=== PATIENT | male | born 1970 | race Caucasian/White ===

== ENCOUNTER 2024-10-01 10:11 | Emergency (ER) | payer MEDICAID, SELFPAY ==
[2024-10-01 10:10] VITALS: BP 131/72; PULSE 90; RESP 20; TEMP 37; O2SAT 97; BMI 24.2
--- NOTE | 2024-10-01 10:14 | XR_ITS ---
FINAL REPORT CLINICAL HISTORY: pain/swelling, dog bite FINDINGS: AP, lateral and oblique views of the right hand were obtained. There is no prior exam for comparison. There is no acute fracture or dislocation. The joint spaces are preserved. There is prominent dorsal soft tissue edema with subcutaneous air. No radiopaque foreign body identified. IMPRESSION: Prominent soft tissue edema with subcutaneous air. No acute osseous abnormality of the right hand. Reviewed, Interpreted and Dictated by Georgette Kearney MD Transcribed by Stephanie Petersen Authenticated and [facility]
--- NOTE | 2024-10-01 10:17 | ED_ITS ---
Discharge Plan Disposition Patient Disposition: Xfer Short-Term Hosp Referrals Follow up/Referrals: Provider,Referral, [Primary Care Provider] - See instructions Clinical Impressions Clinical Impression: Dog bite of right hand, Open fracture of finger of right hand Instructions Patient Instructions: Animal Bites Print Language Print Language: Macedonian Discharge ED Provider: Merle Calderon General Adult HPI General Chief complaint: Animal Bite Stated complaint: dog bite Time Seen by Provider: 10/01/24 10:14 History of Present Illness HPI narrative: This patient is a 54-year-old male who is right-handed, denies significant past medical history, presenting to the emergency department for evaluation with concern for dog bite to the right hand that reportedly occurred yesterday. Patient arrives by EMS, who reported that he did not want to come. 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 The puppy bit him on the ulnar aspect of the right hand and right 4th and 5th digits yesterday. He is not sure if the puppy is up-to-date on vaccinations, but states that he knows the puppy does not have rabies. Patient states that he does not want any needle sticks or blood work done, he just wants to leave because he has to get to work. He does report that he has been drinking alcohol and has history of chronic alcohol abuse. He is unsure when his last tetanus shot was. He denies any other concerns or complaints Related Data Allergies Allergy/AdvReac Type Severity Reaction Status Date / Time No Known Allergies Allergy Verified 10/01/24 10:39 [facility] Disclaimer: The information contained in this section may have been updated after the patient was seen, as this information can be updated by other users. Social History Smoking Status: Current every day smoker alcohol intake: current current occupational status: employed Travel in the last 8 weeks?: None ROS Obtained: Yes All systems reviewed & no additional complaints except as documented Physical Exam General General appearance: alert and in no apparent distress Head Head exam: atraumatic and normocephalic Eye Eye exam: Present normal appearance, PERRL and EOMI ENT ENT exam: Present normal exam, normal oropharynx, mucous membranes moist and normal external ear exam Neck Neck exam: Present normal inspection, full ROM and trachea midline; Absent tenderness Chest Chest inspection: Present normal inspection and symmetric chest wall rise; Absent tenderness Respiratory Respiratory exam: Present normal lung sounds bilaterally; Absent respiratory distress, wheezes, stridor or accessory muscle use Cardiovascular Cardiovascular exam: Present regular rate and normal rhythm Abdominal Exam Abdominal exam: Present soft; Absent distention, tenderness or guarding Extremities Exam Extremities exam: Present full ROM, tenderness, normal capillary refill and edema Expanded Upper Extremity Exam Right: Hand L/R back image: 2 1. Multiple puncture wounds and small lacerations, mostly at the ulnar aspect of the right hand especially at the MCP joint of the fourth fifth digits. Comment: Fusiform swelling, erythema, and warmth of the right hand and digits that is not extend up the forearm. No pus draining from the wounds, but he does have serosanguineous drainage. Neurovascular intact distally in his fingers. Range of motion slightly limited secondary to swelling, but no obvious true deficits Back Exam Back exam: Present normal inspection and full ROM; Absent tenderness Neurological Exam Neurological exam: Present alert, oriented X3, CN II-XII intact and normal gait; Absent motor sensory deficit Psychiatric Psychiatric exam: Present anxious Skin Skin exam: Present warm and dry Medical Decision Making Medical Records Medical records reviewed: Yes I reviewed the patient's medical records. Screening: Per USPSTF and CDC recommendations, given the prevalence of disease in our region, it is our hospital?s policy to screen for HIV and viral Hepatitis for all patients aged 18 and over and those with ongoing risk factors. Sanket Inquiry Pt receiving controlled substance: No Vital Signs: 10/01/24 10:10 Temperature 98.6 F Temperature Source Oral Pulse Rate [Right] 90 Respiratory Rate 20 Blood Pressure [Right Arm] 131/72 Blood Pressure Mean [Right Arm] 91 Blood Pressure Source [Right Arm] Automatic Cuff 02 Sat by Pulse Oximetry 97 Oxygen Delivery Method Room Air Lab Data Lab results reviewed: Yes I reviewed the patient's lab results. Lab Results 10/01/24 10:27: WBC 12.3 H, RBC 4.91, Hgb 15.2, Hct 46.0, MCV 93.7, MCH 31.0, MCHC 33.0, RDW 15.3, Plt Count 183, MPV 10.0, Neut % (Auto) 74.9, Lymph % (Auto) 15.6, [place] % (Auto) 8.0, Eos % (Auto) 0.6, Baso % (Auto) 0.2, Neut # (Auto) 9.2 H, Lymph # (Auto) 1.9, [place] # (Auto) 1.0, Eos # (Auto) 0.1, Baso # (Auto) 0.0, ESR 1, Sodium 143, Potassium 3.8, Chloride 106, Carbon Dioxide 27, Anion Gap 13.8, BUN 10, Creatinine 0.80, Estimated Creat Clear 104, Estimated GFR 102, Est GFR ( Amer) 123, Glucose 83, Calcium 9.0, Total Bilirubin 0.4, AST 32, ALT 25, Alkaline Phosphatase 117, C-Reactive Protein 24.0 H, Total Protein 7.7, Albumin 5.0, Globulin 2.7, Albumin/Globulin Ratio 1.9 H, HCV Ab PIETRO w/Rflx PCR Qn Negative, HIV Ag/Ab Combo Qual Negative 10/01/24 10:27 10/01/24 10:27 Orders (Tests/Meds): ED MEDICATIONS Discontinued Medications Generic Name Dose Route Start Last Admin Trade Name Freq PRN Reason Stop Dose Admin Bacitracin 1 gm 10/01/24 11:42 10/01/24 11:46 Bacitracin Zinc Oint 30gm Tube TP 10/01/24 11:43 1 gm ONCE ONE Administration Ampicillin Sodium/Sulbactam 100 mls @ 200 mls/hr 10/01/24 10:14 10/01/24 10:41 Sodium 3 gm/ Sodium Chloride IV 10/01/24 10:15 200 mls/hr ONCE ONE Administration Tetanus/Reduced Diphtheria/Acell Pertussis 0.5 ml 10/01/24 10:14 10/01/24 11:40 Tet/Diphth/Pert-Adult 0.5ml Syringe IM 10/01/24 10:15 Not Given .ONCE ONE ORDERS Category Date Time Status Hand XR right minimum 3 views [XR hand RT min 3V] Stat Exams 10/01/24 10:14 Completed CBC w/Auto Diff [Complete Blood Count Auto Diff] Stat Lab 10/01/24 10:27 Completed CMP [Comprehensive Metabolic Panel] Stat Lab 10/01/24 10:27 Completed CRP [C-Reactive Protein] Stat Lab 10/01/24 10:27 Completed ESR [Erythrocyte Sedimentation Rate] Stat Lab 10/01/24 10:27 Completed HIV Combo Stat Lab 10/01/24 10:27 Completed Hepatitis C Ab Qual. W/ RFX Stat Lab 10/01/24 10:27 Completed Medical Decision Narrative: In summary, this patient is a 54-year-old male presenting to the Emergency Department for evaluation of dog bite to the right hand that reportedly happened yesterday. Differential diagnoses considered include but are not limited to rabies infection, cellulitis, abscess, tendon injury, open fracture, laceration, retained foreign body. Ruling out the most morbid conditions drove assessment. It should be noted patient's history includes alcohol abuse which is not at goal therapy. This complicates all aspects of care by increasing patient's risk for morbidity. History is provided by both the patient and EMS. Patient has significant soft tissue swelling of the right hand with redness, warmth, and I am concerned that this possibly happened prior to yesterday given the degree of swelling and cellulitic change. No pus draining from the wounds. He does not have any focal neurologic deficits and has intact cap refill. He has limited range of motion secondary to the swelling of his hand, but he does not have any obvious deficit. He has multiple open wounds and lacerations. Patient did not want to come here and is refusing needlesticks, however I did discuss with him the risk of rabies infection, tetanus infection, worsening cellulitis of his hand including loss of life and limb. After this, he was agreeable to IV for IV antibiotics and labs and he also was agreeable to tetanus booster, but he states that he knows the dog does not have rabies even though he is not sure about vaccination status and is not agreeable to any sort of rabies injections. Again, I did thoroughly explained risk of not treating this appropriately, including loss of limb and life. He expressed understanding and agreement but expresses a grave fear of needles. Workup included CBC, CMP, ESR, CRP, x-rays of the right hand. He was given tetanus booster as well as IV Unasyn. Hand wounds were extensively irrigated with sterile saline and Betadine. I independently interpreted x-ray prior to the radiologist read and noted fractures through the base of the fifth proximal phalanx, no foreign body. Please see their read for final interpretation initial radiology read did not demonstrate. Concern for fracture, so I had an indirect discussion with Dr. Kearney who addended the read. labs were obtained that demonstrated leukocytosis of 12.3 with elevated inflammatory markers including a CRP of 24. Chemistry is reassuring and nonactionable otherwise. On reassessment, patient is sitting upright in no acute distress. Hand was copiously irrigated, and wounds were dressed with bacitracin and Vaseline gauze. He has received IV Unasyn. Given the fracture to the base of the fifth proximal phalanx, he was placed in an ulnar gutter splint. He was not very cooperative with splint placement, but he did remain neurovascular intact afterwards. He refused tetanus shot adamantly despite explaining risk versus benefit, also refuses rabies evaluation and refuses to disclose other information about the dog. We again talked about risk of loss of limb/life if he has worsening of infection or condition. Given open fracture, I called and initiated discussion with [facility] Dr. Amanda with orthopedics hand who recommended transfer to their facility for higher level of care at . Dr. Amanda and Dr. England accepted the patient to [facility] emergency department. Patient states that he is not willing to go, and I talked him extensively about the reasons that he should, as already previously discussed. At that time, patient then eloped outside to go into smoke. We did convince him to come back inside. Now he is agreeable to transfer to . EMS transport was arranged and he was transferred in stable condition. Critical Care Critical Care Time Critical Care Time: Yes Attestation: On 10/01/24, the high probability of a clinically significant, sudden or life threatening deterioration of the following system(s) required my full and direct attention, intervention and personal management. The time I documented below is in addition to time spent performing reported procedures but includes the following listed in this critical care notation. Total Time Total Critical Care Time: 35
[2024-10-01 10:33] LABS: Basophils % 0.2 % (0.1-2.0); Eosinophils # 0.1 Kmm3 (0.0-0.4); Eosinophils % 0.6 % (0.1-12.0); Hemoglobin 15.2 g/dL (14.1-18.0); Immature Granulocytes # 0.08 10^3uL; Immature Granulocytes % 0.7 %; Lymphocytes # 1.9 K/mm3 (0.7-4.5); Lymphocytes % 15.6 % (10-50); Mean Corpuscular Volume 93.7 fl (80-94); Neutrophils # 9.2 K/mm3 (1.8-7.8); Neutrophils % 74.9 % (37.0-80.0); Nucleated Red Blood Cells # 0 10^3/uL; Nucleated Red Blood Cells % 0 %; Platelet Count 183 K/mm3 (142-424); Red Blood Count 4.91 M/mm3 (4.60-6.20); Red Cell Distribution Width 15.3 % (11.5-17.5); Red Cell Distribution Width-SD 50.5 fL; White Blood Count 12.3 K/mm3 (4.8-10.8)
[2024-10-01] MEDS: AMPICILLIN SODIUM/SULBACTAM 3 GM in 0.9 % SODIUM CHLORIDE 100 ML IV (10:41)
[2024-10-01 10:49] LABS: Chloride 106 mmol/L (98-107)
[2024-10-01 10:50] LABS: Potassium 3.8 mmoL/L (3.5-5.1); Sodium 143 mmol/L (136-145)
[2024-10-01 10:52] LABS: Alanine Aminotransferase 25 U/L (12-78); Anion Gap 13.8 mEq/L (5-15); Aspartate Amino Transferase 32 U/L (17-59); Blood Urea Nitrogen 10 mg/dl (9-20); Carbon Dioxide 27 mmol/L (22.0-30.0); Creatinine Clearance Estimated 104 mL/min (50-200); Estimated Glomerular Filt Rate 102 ml/min (>60); GFR (African American) 123 ML/MIN (>60)
[2024-10-01 10:53] LABS: Albumin/Globulin Ratio 1.9 (1.1-1.8); Alkaline Phosphatase 117 U/L (38-126); Bilirubin,Total 0.4 mg/dl (0.2-1.3); Globulin 2.7 g/dL (1.3-3.2); Glucose 83 mg/dl (74-100); Total Protein,Serum 7.7 g/dl (6.3-8.2)
[2024-10-01 11:16] LABS: Erythrocyte Sedimentation Rate 1 mm/hr (0-20)
--- NOTE | 2024-10-01 11:35 | PC.NURSE ---
Called [facility] per Dr Calderon to consult with hand about this pt with dog bite. Images were powershared and [facility] would call us back
[2024-10-01] MEDS: BACITRACIN ZINC OINT 30GM TUBE TP (11:46)
[2024-10-01 12:04] LABS: HIV Combo NEGATIVE (Negative)
--- NOTE | 2024-10-01 12:08 | PC.NURSE ---
Called [facility] back to follow up since it had been an hour. Hand team had been paged and we are just awaiting a callback
--- NOTE | 2024-10-01 12:11 | PC.NURSE ---
called back and is speaking with Dr Calderon now
[2024-10-01 12:13] LABS: Hepatitis C Ab Qual. W/ RFX NEGATIVE (Negative)
--- NOTE | 2024-10-01 12:23 | PC.NURSE ---
Dr Calderon s/w pt regarding new findings on xray of open fracture and the need for transfer to [facility]. Pt is asking to go outside to make a phone call . We let him know he can not leave the ER out to EMS bay and that if he chooses to leave now it will be AMA. He was offered a phone to make a call within the ER and questions offered. Dr Calderon is needing to place Ulnar/Gutter splint to R arm. He is agreeable to having splint placed and will think on it about the transfer.
--- NOTE | 2024-10-01 13:25 | PC.NURSE ---
Called EMS to advise them of this transfer
--- NOTE | 2024-10-01 13:26 | PC.NURSE ---
Report called to Tomas VIEYRA
[2024-10-01] MEDS: ONDANSETRON 4MG ODT 4 MG SL (13:33)
[2024-10-01] MEDS: ACETAMINOPHEN 500MG TAB 1000 MG PO (13:33)
[2024-10-01] MEDS: OXYCODONE 5MG IMMEDIATE RELEASE TABLET 5 MG PO (13:34)
[2024-10-01 13:39] VITALS: BP 120/71; PULSE 64; RESP 18; TEMP 36.7; O2SAT 99
== END 2024-10-01 14:06 | disposition short-term general hospital (02) ==
PROVIDERS: Emergency Provider Emergency Medicine
DX: S62.646B Nondisplaced fracture of proximal phalanx of right little finger, initial encounter for open fracture (principal); F10.10 Alcohol abuse, uncomplicated; F17.210 Nicotine dependence, cigarettes, uncomplicated; W54.0XXA Bitten by dog, initial encounter
CPT/HCPCS: 29125; 73130; 80053; 85025; 85651; 86140; 86803; 87389; 96374; 99285; J0295; Q0162

== ENCOUNTER 2024-10-16 10:25 | Emergency (ER) | payer MEDICAID, SELFPAY ==
[2024-10-16 10:27] VITALS: BP 134/75; PULSE 76; RESP 16; TEMP 36.6; O2SAT 97; BMI 21.9
[2024-10-16] MEDS: IBUPROFEN 400 MG TABLET 800 MG PO (10:37)
[2024-10-16] MEDS: ACETAMINOPHEN 500MG TAB 1000 MG PO (10:38)
[2024-10-16 11:03] VITALS: BP 0/0; PULSE 0; RESP 0; TEMP -17.7; TEMP 0; O2SAT 0
--- NOTE | 2024-10-16 11:03 | PC.NURSE ---
parul cameron come to nurses station and stated that pt was in the lobby waiting to speak to his sister. parul cameron told pt that she was there to get him for an xray. pt did not want xray and opted to leave facility.
--- NOTE | 2024-10-16 11:05 | ED_ITS ---
Discharge Plan Disposition Patient Disposition: Eloped Condition: Undetermined Chief Complaint: PAIN Prescriptions Prescriptions: No Action No Known Home Medications Referrals Follow up/Referrals: Provider,Referral, [Primary Care Provider] - See instructions Clinical Impressions Clinical Impression: Fall, Acute pain of right hip Dog bite of right hand Qualifiers: Encounter type: subsequent encounter Qualified Code(s): S61.451D - Open bite of right hand, subsequent encounter Open fracture of finger of right hand Qualifiers: Encounter type: subsequent encounter Print Language Print Language: Polish Discharge ED Provider: Merle Calderon General Adult HPI General Chief complaint: PAIN Stated complaint: pain in rt hand from dog bite Time Seen by Provider: 10/16/24 10:26 Mode of Arrival: Ambulatory Source of Information: Patient Description of Symptoms (Recalled from ER Triage Doc. by RN): pt reports falling off a step yesterday and landing on the R side of his body. pt c/o R knee pain that is 6/10, sharp/throbbing, and radiates proximal to his femur/hip. pt also c/o R hand pain that is sharp and 6/10. pt is concerned he may have reinjured his R hand. He was seen here a wk ago and transferred to for a dog bite to his R hand and reports it is fractured. His pain is 6/10. 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 pt was sent augmentin on 10/03 from [facility] for 8d. pt still has two remaining pills. History of Present Illness HPI narrative: This patient is a 54-year-old male with a history of alcohol abuse presenting to the emergency department for evaluation with concern for pain in the right hand and right hip after a fall. Patient states that he is afraid that he reinjured his right hand. Patient suffered a dog bite to his right hand 09/30/24 with open right P1 base fracture. He was placed in a volar splint and discharged home with antibiotics after being admitted at for several days for IV antibiotics in the setting of infected dog bite and open fracture. He removed his splint after going home, stating that it itched and it felt like the material was getting into his cuts. He has not been using his splint since then. He fell yesterday from 1 step high, landing on his right side of his body. He complains of right knee pain, right hip pain, and right hand pain. Pain is currently 6 out of 10. He denies any other pain otherwise. He denies head or lose consciousness. Related Data Home Medications ?Medication ?Instructions ?Recorded ?Confirmed No Known Home Medications 10/16/24 10/16/24 Allergies Allergy/AdvReac Type Severity Reaction Status Date / Time No Known Allergies Allergy Verified 10/16/24 10:33 [facility] Disclaimer: The information contained in this section may have been updated after the patient was seen, as this information can be updated by other users. Social History Smoking Status: Current every day smoker alcohol intake: current current occupational status: employed Travel in the last 8 weeks?: None Have you lived/traveled outside [place] in past 30 days?: No Contact w/someone who lives/traveled outside US past 30 days?: No Exposure to someone with infectious disease in past 14 days?: No Do you have a fever (greater than 100.4 F or 38 C)?: No Have you tested positive for COVID-19?: No Exposed to someone with COVID-19 in past 14 days?: No Do you have a sore throat?: No Do you have a cough?: No Do you have any weakness?: No Do you have any diarrhea?: No Are you experiencing any unusual bleeding?: No Do you have any muscle aches/pain?: Yes Do you have any abdominal pain?: No Are you experiencing loss of taste or smell?: No ROS Obtained: Yes All systems reviewed & no additional complaints except as documented Physical Exam General General appearance: alert and in no apparent distress Head Head exam: atraumatic and normocephalic Eye Eye exam: Present normal appearance, PERRL and EOMI ENT ENT exam: Present normal exam, normal oropharynx, mucous membranes moist and normal external ear exam Neck Neck exam: Present normal inspection, full ROM and trachea midline; Absent tenderness Chest Chest inspection: Present normal inspection and symmetric chest wall rise; Absent tenderness Respiratory Respiratory exam: Present normal lung sounds bilaterally; Absent respiratory distress, wheezes, stridor or accessory muscle use Cardiovascular Cardiovascular exam: Present regular rate and normal rhythm Abdominal Exam Abdominal exam: Present soft; Absent distention, tenderness or guarding Extremities Exam Extremities exam: Present full ROM, tenderness, normal capillary refill and other (Tenderness to palpation of the right hand, especially at the site of the fracture and healing lacerations. No redness, warmth, or purulence noted. Neurovascularly intact distally. He also has tenderness palpation of his right femur but is neurovascularly intact); Absent edema Back Exam Back exam: Present normal inspection and full ROM; Absent tenderness Neurological Exam Neurological exam: Present alert, oriented X3, CN II-XII intact and normal gait; Absent motor sensory deficit Psychiatric Psychiatric exam: Present normal affect and normal mood Skin Skin exam: Present warm and dry Medical Decision Making Medical Records Medical records reviewed: Yes I reviewed the patient's medical records. Screening: Per USPSTF and CDC recommendations, given the prevalence of disease in our region, it is our hospital?s policy to screen for HIV and viral Hepatitis for all patients aged 18 and over and those with ongoing risk factors. Sanket Inquiry Pt receiving controlled substance: No Vital Signs: 10/16/24 10:27 10/16/24 11:03 Temperature 97.8 F 0 F L Temperature Source Oral Pulse Rate 0 L Pulse Rate [Left] 76 Respiratory Rate 16 0 L Blood Pressure 0/0 L Blood Pressure [Right Arm] 134/75 Blood Pressure Mean [Right Arm] 94 Blood Pressure Source [Right Arm] Automatic Cuff Blood Pressure Position [Right Arm] Sitting 02 Sat by Pulse Oximetry 97 Oxygen Delivery Method Room Air Lab Data Lab results reviewed: Yes I reviewed the patient's lab results. Orders (Tests/Meds): ED MEDICATIONS Discontinued Medications Generic Name Dose Route Start Last Admin Trade Name Freq PRN Reason Stop Dose Admin Acetaminophen 1,000 mg 10/16/24 10:30 10/16/24 10:38 Acetaminophen 500mg Tab PO 10/16/24 10:31 1,000 mg ONCE ONE Administration Ibuprofen 800 mg 10/16/24 10:30 10/16/24 10:37 Ibuprofen 400 Mg Tablet PO 10/16/24 10:31 800 mg ONCE ONE Administration Medical Decision Narrative: In summary, this patient is a 54-year-old male presenting to the Emergency Department for evaluation of right hand and right femur pain after a fall yesterday. Differential diagnoses considered include but are not limited to fracture, contusion, strain/sprain, neurovascular injury. Ruling out the most morbid conditions drove assessment. It should be noted patient's history includes alcohol use which is not at goal therapy. This complicates all aspects of care by increasing patient's risk for morbidity. I reviewed patient's past medical records and noted evaluation here in transfer to for open hand fracture in the setting of dog bite as well as admission to with discharge in a volar resting splint as detailed in HPI On exam, the patient has previously removed his right upper extremity splint. He has tenderness to palpation of his right hand, right femur but is neurovascularly intact. His wounds look good with no redness, warmth, or purulence.. They are much improved from when I saw him previously. Workup included x-rays of the right hand, wrist, hip/pelvis, femur, knee. He was given oral Tylenol and ibuprofen for pain. Unfortunately, patient eloped prior to us obtaining x-rays. My plan was to place him in a new volar splint as well, but he eloped prior to this after reportedly telling x-ray that he did not have time to wait for x-rays. Critical Care Critical Care Time Critical Care Time: No
== END 2024-10-16 11:04 | disposition left against medical advice (07) ==
PROVIDERS: Emergency Provider Emergency Medicine
DX: M25.551 Pain in right hip (principal); S61.451D Open bite of right hand, subsequent encounter; W10.8XXA Fall (on) (from) other stairs and steps, initial encounter
CPT/HCPCS: 99283